=== PATIENT | female | born 1950 | race Caucasian/White ===

== ENCOUNTER 2016-09-29 19:03 | Emergency (ER) | payer BC ==
[2016-09-29 19:44] VITALS: BP 152/73
--- NOTE | 2016-09-29 20:04 | UC ---
General HPI - HPI Summary HPI Summary: Pleasant 66 yo female presents with c/o feeling bad since yesterday. Cough and wheezing since yesterday. No hemoptysis, minimal sputum production. No sob perse except with cough. No cp, except with cough. + sore throat L>R last several days. ? unk sick contact. Also since yesterday, c/o dysuria, frequency / urgency. Took pyridium today approx 17:30. W/o cvat reported but does have chronic R mid - upper back pain 2 /2 previous injury. This pain worsens with cough. As such, difficult to tell if new back pain or not. No fever / chills. No rash. Does have a nebulizer at home, but no meds current. Used to take long-acting meds (ex Spiriva), but hasn't taken in several months. Plans to f/u with [facility] this week, and may restart. - History of Current Complaint Chief Complaint: [facility]CGU Stated Complaint: POSSIBLE UTI Time Seen by Provider: 09/29/16 19:53 Hx Obtained From: Patient - Allergy/Home Medications Allergies/Adverse Reactions: Allergies Allergy/AdvReac Type Severity Reaction Status Date / Time Latex Allergy Rash Verified 09/29/16 19:33 ENVIRONMENTAL Allergy Unknown Uncoded 09/29/16 19:33 Reaction Details NEW ZEALANDER CHEESE Allergy Shortness Uncoded 09/29/16 19:33 of Breath Home Medications: Home Medications Phenazopyridine 200 mg (NF) [Pyridium 200 MG tab] 200 mg PO ONCE 09/29/16 [ History Confirmed 09/29/16] guaiFENesin LIQ* [Robitussin*] 10 mg PO Q4H PRN 09/29/16 [History Confirmed ] PMH/Surg Hx/FS Hx/Imm Hx Previously Healthy: No - healthy except as otherwise noted Endocrine History Of: Denies: Diabetes Cardiovascular History Of: Reports: Hypertension Denies: Cardiac Disorders Respiratory History Of: Reports: COPD, Asthma, Bronchitis, Pneumonia Psychological History Of: Denies: Anxiety Cancer History Of: Denies: Lung Cancer, Breast Cancer - Surgical History Surgical History: Yes Surgery Procedure, Year, and Place: duct removed right breast , 2006, [facility] ovarian cyst removal 2000, [facility]. LEFT CATARACT, 2012, [facility] - Social History Alcohol Use: Daily Alcohol Amount: wine Substance Use Type: None Smoking Status (MU): Former Smoker Type: Cigarettes Amount Used/How Often: 1 PPD Length of Time of Smoking/Using Tobacco: 34 Years Have You Smoked in the Last Year: No When Did the Patient Quit Smoking/Using Tobacco: 2000 - Immunization History Most Recent Influenza Vaccination: March 2015 Review of Systems Constitutional: Fatigue Skin: Negative Eyes: Negative ENT: Sore Throat, Ear Ache - left ear Respiratory: Cough Cardiovascular: Negative Gastrointestinal: Negative Genitourinary: Dysuria, Frequency, Urgency Motor: Negative Neurovascular: Negative Musculoskeletal: Arthralgia Neurological: Negative Psychological: Negative All Other Systems Reviewed And Are Negative: Yes Physical Exam Triage Information Reviewed: Yes Appearance: Well-Nourished - sitting up. conversing in full sentances. Looks tired but NAD. Vital Signs: Initial Vital Signs Temp 98.4 F 09/29/16 19:24 Pulse 94 09/29/16 19:24 Resp 20 09/29/16 19:24 BP 152/73 09/29/16 19:24 Pulse Ox 94 09/29/16 19:24 Vital Signs Reviewed: Yes Eye Exam: Normal - eyes a little watery ENT: Positive: Pharynx normal, Pharyngeal erythema, Nasal congestion, TM dull - both tm's dull L tm + redness, c/w barotrauma. Tm is intact. Neck exam: Normal Neck: Positive: Supple, Nontender, No Lymphadenopathy - None appreciated, but pt does experience pain L>R Uvula midline. Post pharynx red. Respiratory Exam: Other - Bilat insp and exp wheezing. + rhonchorus, tight cough. Respiratory: Positive: Chest non-tender, Wheezing Cardiovascular Exam: Normal Cardiovascular: Positive: RRR, No Murmur - none noted with exam. But exam limited 2/2 wheezing., Pulses Normal Abdominal Exam: Normal, Other - + dysuria and perineal pain with urination Abdomen Description: Positive: Nontender Musculoskeletal Exam: Normal Neurological Exam: Normal - nonfocal, grossly intact Psychological Exam: Normal Course/Dx - Course Course Of Treatment: Urine dip - n/a 2/2 pyridium. Cx sent. RST neg. DuoNeb x 1 - improvement. Declines prednisone here, not sure if she wants to take it. I will e-scribe in case she changes her mind. Will send tubing from today home with her. Rx Albuterol. F/u PCP in the next couple weeks for recheck ( including to ensure no blood in urine). F/u [facility] this week as planned. Questions answered to the best of my ability. - Differential Dx - Multi-Symptom Provider Diagnoses: Acute bronchitis with wheezing. Cystitis (UTI). Barotrauma L TM Discharge - Discharge Plan Condition: Stable Disposition: HOME Prescriptions: Albuterol 2.5MG/3ML (0.083%)* [Ventolin 2.5 MG/3 ML NEB.ELZBIETA*] 2.5 mg INH Q4H #1 box Ciprofloxacin HCl [Cipro 500 MG TAB] 500 mg PO BID #20 tab Phenazopyridine 200 mg (NF) [Pyridium 200 MG tab] 200 mg PO TID PRN #15 tab PRN Reason: dysuria predniSONE TAB* [Deltasone TAB*] 10 mg PO DAILY #14 tab Patient Education Materials: Urinary Tract Infection in Women (ED), Acute Bronchitis (ED), How to Use a Nebulizer (ED), Bronchospasm (ED) Referrals: Amarilis Weinstein MD [Primary Care Provider] - Additional Instructions: Follow up with your primary care physician in the next couple weeks for recheck. Follow up with your litigation counsel this week as planned. Urine culture in the lab. Strep test negative today. Please seek medical attention for worse or new problems.
[2016-09-29] MEDS ORDERED: Albuterol/Ipratropium NEB.SOL* Albuterol 2.5 MG/Ipratropium 0.5 MG 3 ML INH ONE (20:13)
[2016-09-29] MEDS ORDERED: Ciprofloxacin TAB* 500 MG PO ONE (20:15)
== END 2016-09-29 20:39 | disposition home or self-care (01) ==
LOC: UCCORT 19:03
DX: J20.9 Acute bronchitis, unspecified (principal); N30.90 Cystitis, unspecified without hematuria; T70.0XXA Otitic barotrauma, initial encounter; X58.XXXA Exposure to other specified factors, initial encounter; I10 Essential (primary) hypertension; Z98.42 Cataract extraction status, left eye; Z87.891 Personal history of nicotine dependence
CPT/HCPCS: 87086; 87651; 99212; A9270-GY; G0463